=== PATIENT | male | born 1950 | race Caucasian/White ===

== ENCOUNTER 2016-06-10 14:30 | Emergency (ER) | payer MEDICARE, OTHER ==
[~2016-06-10] VITALS: Ht 185.4 cm; Wt 80.3 kg
[2016-06-10 14:34] VITALS: BP 132/89; PULSE 78; RESP 18; TEMP 97.6; O2SAT 100
[2016-06-10] MEDS ORDERED: RANI150T PO (14:48)
[2016-06-10] MEDS ORDERED: LISI-519 PO (14:48)
[2016-06-10] MEDS ORDERED: LEVO75TA3 PO (14:48)
[2016-06-10] MEDS ORDERED: PRAV20TA2 PO (14:48)
--- NOTE | 2016-06-10 14:50 | PD ---
HPI Chief Complaint: Complaint Time Seen by Provider: 14:42 Travel History International Travel<30 days: No Contact w/Intl Traveler<30days: No Traveled to known affect area: No History of Present Illness HPI This patient complains of the abrupt onset of left flank pain with radiation to the testicle. Duration 1 hour. He woke up from a nap with this pain. No urinary complaint. No injury. No fever. Symptoms severity is moderate. No alleviating factors PFSH Past Medical History Genitourinary: Yes (Frequent UTI's) Hypertension: Yes Thyroid Disease: Yes (Hypo-) Tetanus Vaccination: > 5 Years Influenza Vaccination: No Past Surgical History Other Surgery: Yes (Partial thyroidectomy ) Social History Alcohol Use: Yes (Beer/wine 2-3 daily) Tobacco Use: No Substance Use: No Allergies-Medications (Allergen,Severity, Reaction): Coded Allergies: No Known Allergies (Unverified , 06/10/16) Reported Meds & Prescriptions Reported Meds & Active Scripts Active Reported Pravastatin 20 Mg Tab 20 Mg PO DAILY Ranitidine (Ranitidine HCl) 150 Mg Tab 150 Mg PO DAILY Lisinopril 5 Mg Tab 5 Mg PO DAILY Levothyroxine (Levothyroxine Sodium) 75 Mcg Tab 75 Mcg PO DAILY Review of Systems General / Constitutional: No: Fever Eyes: No: Visual changes HENT: No: Headaches Cardiovascular: No: Chest Pain or Discomfort Respiratory: No: Shortness of Breath Gastrointestinal: Positive: Nausea, No: Abdominal Pain Genitourinary: Positive: Flank Pain, No: Dysuria Musculoskeletal: No: Pain Skin: No Rash Neurologic: No: Weakness Psychiatric: No: Depression Endocrine: No: Polydipsia Hematologic/Lymphatic: No: Easy Bruising Physical Exam Narrative GENERAL: Well-nourished, well-developed patient with left flank pain. SKIN: Focused skin assessment reveals no rash and nodules. Skin is Warm and dry. HEAD: Atraumatic. Normocephalic. EYES: Pupils equal and round. No scleral icterus. No injection or drainage. ENT: No nasal bleeding or discharge. Mucous membranes pink and moist. NECK: Trachea midline. No JVD. CARDIOVASCULAR: Regular rate and rhythm. No murmur appreciated. RESPIRATORY: No accessory muscle use. Clear to auscultation. Breath sounds equal bilaterally. GASTROINTESTINAL: Abdomen soft, non-tender, nondistended. Hepatic and splenic margins not palpable. MUSCULOSKELETAL: No obvious deformities. No clubbing. No cyanosis. No edema. NEUROLOGICAL: Awake and alert. No obvious cranial nerve deficits. Motor grossly within normal limits. Normal speech. PSYCHIATRIC: Appropriate mood and affect; insight and judgment normal. : Penis and testicles exam normal Data Data Last Documented VS Vital Signs Date Time Temp Pulse Resp B/P Pulse Ox O2 Delivery O2 Flow Rate FiO2 06/10/16 14:34 97.6 78 18 132/[address] Abd/Pel W/O Iv Contrast (06/10/16 ) Urinalysis - C+S If Indicated (06/10/16 14:47) Ondansetron Inj (Zofran Inj) (06/10/16 15:00) Ketorolac Inj (Toradol Inj) (06/10/16 15:00) Morphine Inj (Morphine Inj) (06/10/16 15:00) Labs Laboratory Tests Test 06/10/16 15:00 Urine Collection Type CLEAN CATCH Urine Color YELLOW Urine Turbidity MOD Urine pH 5.5 Urine Specific [place] 1.017 Urine Protein 30 mg/dL Urine Glucose (UA) NEG mg/dL Urine Ketones 15 mg/dL Urine Occult Blood LARGE Urine Nitrite NEG Urine Bilirubin NEG Urine Leukocyte Esterase SMALL Urine RBC 25-49 /hpf Urine WBC 3-5 /hpf Urine Squamous Epithelial 6-8 /hpf Cells Urine Amorphous Sediment MOD Microscopic Urinalysis Comment CULT NOT INDICATED Urine Collection Time 1500 MDM Medical Decision Making Medical Screen Exam Complete: Yes Emergency Medical Condition: Yes Medical Record Reviewed: Yes Differential Diagnosis Kidney stone, sciatica, pyelonephritis Narrative Course I have reviewed the patient's electronic medical record. He is never been here to the ER before. No prior history of kidney stone I gave him injection of morphine and Zofran and Toradol for symptom relief Urinalysis shows blood without sign of infection CT of abdomen and pelvis shows 6 mm left-sided ureteral stone with some hydronephrosis This would explain his pain. He is improved after the above pain medications He will call urologist on Sunday for follow-up I prescribed him Percocet and Zofran and Flomax Stable for outpatient follow-up Diagnosis Primary Impression: Kidney stone on left side Additional Instructions: The patient was advised to follow up with urologist and return if they worsen. The patient was warned about potential sedation for the medications they will receive on prescription. Med/Other Pt SpecificInfo: Prescription(s) given Scripts Tamsulosin (Flomax)0.4 Mg Cap0.4 Mg PO HS #7 CAP Ref 0 Prov:Butch Serna MD 06/10/16 Ondansetron (Zofran)4 Mg Tab4 Mg PO Q6HR PRN (NAUSEA OR VOMITING) #15 TAB Ref 0 Prov:Butch Serna MD 06/10/16 Oxycodone-Acetaminophen (Percocet)5-325 mg Tab1 Tab PO Q6H PRN (PAIN) #25 TAB Ref 0 Prov:Butch Serna MD 06/10/16 Disposition: 01 DISCHARGE HOME Condition: Stable Butch Serna MD Jun 10, 2016 14:50
[2016-06-10] MEDS ORDERED: ONDANSETRON HCL 4 MG/2 ML VIAL IM ONE (15:00)
[2016-06-10] MEDS ORDERED: KETOROLAC TROMETHAMINE 60 MG/2 ML (IM) VIAL IM ONE (15:00)
[2016-06-10] MEDS ORDERED: MORPHINE SULFATE 4 MG/ML INJ IM ONE (15:00)
[2016-06-10 15:04] LABS: BLOOD, URINE LARGE (NEG); GLUCOSE,URINE NEG (NEG); KETONE, URINE 15 mg/dL (NEG); NITRITE,URINE NEG (NEG); PH, URINE 5.5 (5.0-8.5)
[2016-06-10 15:17] LABS: METHOD OF COLLECTION CLEAN CATCH; URINE COLOR YELLOW (YELLW/STRAW)
[2016-06-10 15:20] LABS: CULTURE IF INDICATED CULT NOT INDICATED
[2016-06-10 15:21] LABS: COMMENT (UR) CULT NOT INDICATED
--- NOTE | 2016-06-10 15:37 | RADHPO ---
EXAM DATE/TIME: 06/10/2016 15:00 [facility] COMPARISON: No previous studies available for comparison. INDICATIONS : Left flank pain today. ORAL CONTRAST: No oral contrast ingested. RADIATION DOSE: 10.64 CTDIvol (mGy) MEDICAL HISTORY : Hypertension. Hypothyroidism. SURGICAL HISTORY : partial thyroidectomy ENCOUNTER: Initial ACUITY: 1 day PAIN SCALE: 8/10 LOCATION: Left flank TECHNIQUE: Volumetric scanning of the abdomen and pelvis was performed. Using automated exposure control and ad justment of the mA and/or kV according to patient size, radiation dose was kept as low as reasonably achievable to obtain optimal diagnostic quality images. FINDINGS: CT Abdomen: The liver, spleen, pancreas, right kidney, adrenals are unremarkable. There is no evidenc e for any appreciable pathological adenopathy, free fluid, or bowel obstruction. There is an approxi mate 6 mm stone in the left proximal ureter past the UPJ with moderate hydronephrosis in the left kid jesus. CT pelvis: There is no evidence for mass, abscess formation, or any significant adenopathy within the pelvis. The prostate gland is inhomogeneous and measures 3.7 x 5.2 cm in AP and transverse diameters and nonspecific. There are scattered diverticuli mainly in the sigmoid colon without definite signs of diverticulitis. CONCLUSION: Left proximal ureteral stone with moderate hydronephrosis. Kendal Morgan MD on June 10, 2016 at 15:33 Board Certified Radiologist. This report was verified electronically.
[2016-06-10] MEDS ORDERED: ZOFR4TAB PO (15:48)
[2016-06-10] MEDS ORDERED: TAMS5CAP PO (15:48)
[2016-06-10] MEDS ORDERED: PERC5TAB12 PO (15:48)
[2016-06-10 16:10] VITALS: BP 119/79; PULSE 68; RESP 14; O2SAT 100
== END 2016-06-10 16:10 | disposition home or self-care (01) ==
LOC: PHED 14:30
DX: N13.2 Hydronephrosis with renal and ureteral calculous obstruction (principal)
CPT/HCPCS: 74176; 81001; 96372; 99284; J1885; J2270; J2405

== ENCOUNTER 2016-07-15 13:29 | Emergency (ER) | payer MEDICARE, OTHER ==
[~2016-07-15] VITALS: Ht 182.9 cm; Wt 80.0 kg
[~2016-07-15 13:29] MED LIST: LEVO75TA3 PO; LISI-519 PO; PERC5TAB12 PO; PRAV20TA2 PO; RANI150T PO; TAMS5CAP PO; ZOFR4TAB PO
[2016-07-15] MEDS ORDERED: ADENOSINE IV SOLN 3 MG/ML 2 ML VIAL ONE (13:38)
[2016-07-15 13:45] VITALS: BP 139/102; PULSE 170; RESP 16; TEMP 98.7; O2SAT 97
[2016-07-15 13:48] VITALS: BP 163/96; PULSE 83; RESP 16; O2SAT 98
--- NOTE | 2016-07-15 13:50 | PD ---
HPI Chief Complaint: Chest Pain Time Seen by Provider: 13:44 Travel History International Travel<30 days: No Contact w/Intl Traveler<30days: No History of Present Illness HPI Patient presents with complaints of rapid heart rate for approximately one hour. Denies any chest pain shortness of breath urinary or bowel symptoms. Denies any new medications. Denies any supplements or drug use. Denies excessive caffeine intake. Normally takes lisinopril for hypertension. Denies any diaphoresis or shortness of breath. Denies tobacco use. Reports a similar episode approximately month ago that lasted for 10 minutes. PFSH Past Medical History Genitourinary: Yes (Frequent UTI's) Hypertension: Yes Thyroid Disease: Yes (Hypo-) Past Surgical History Other Surgery: Yes (Partial thyroidectomy ) Social History Alcohol Use: Yes (Beer/wine 2-3 daily) Tobacco Use: No Substance Use: No Allergies-Medications (Allergen,Severity, Reaction): Coded Allergies: No Known Allergies (Unverified , 06/10/16) Reported Meds & Prescriptions Reported Meds & Active Scripts Active Flomax (Tamsulosin HCl) 0.4 Mg Cap 0.4 Mg PO HS Zofran (Ondansetron HCl) 4 Mg Tab 4 Mg PO Q6HR PRN Percocet (Oxycodone-Acetaminophen) 5-325 mg Tab 1 Tab PO Q6H PRN Reported Pravastatin 20 Mg Tab 20 Mg PO DAILY Ranitidine (Ranitidine HCl) 150 Mg Tab 150 Mg PO DAILY Lisinopril 5 Mg Tab 5 Mg PO DAILY Levothyroxine (Levothyroxine Sodium) 75 Mcg Tab 75 Mcg PO DAILY Review of Systems General / Constitutional: No: Fever Eyes: No: Visual changes HENT: No: Headaches Cardiovascular: Positive: Palpitations, Tachycardia, No: Chest Pain or Discomfort Respiratory: No: Shortness of Breath Gastrointestinal: No: Abdominal Pain Genitourinary: No: Dysuria Musculoskeletal: No: Pain Skin: No Rash Neurologic: No: Weakness Psychiatric: No: Depression Endocrine: No: Polydipsia Hematologic/Lymphatic: No: Easy Bruising Physical Exam Narrative GENERAL: Well-nourished, well-developed patient. SKIN: Focused skin assessment warm/dry. HEAD: Normocephalic. EYES: No scleral icterus. No injection or drainage. NECK: Supple, trachea midline. No JVD or lymphadenopathy. CARDIOVASCULAR: Regular rate and rhythm without murmurs, gallops, or rubs. RESPIRATORY: Breath sounds equal bilaterally. No accessory muscle use. GASTROINTESTINAL: Abdomen soft, non-tender, nondistended. MUSCULOSKELETAL: No cyanosis, or edema. BACK: Nontender without obvious deformity. No CVA tenderness. Data Data Last Documented VS Vital Signs Date Time Temp Pulse Resp B/P Pulse Ox O2 Delivery O2 Flow Rate FiO2 07/15/16 14:00 98 07/15/16 14:00 83 16 143/88 133/91 07/15/16 13:45 98.7 Orders Adenosine Inj (Adenocard Inj) (07/15/16 13:38) Electrocardiogram (07/15/16 13:50) Ckmb (Isoenzyme) Profile (07/15/16 13:50) Complete Blood Count With Diff (07/15/16 13:50) Comprehensive Metabolic Panel (07/15/16 13:50) Magnesium (Mg) (07/15/16 13:50) Prothrombin Time / Inr (Pt) (07/15/16 13:50) Act Partial Throm Time (Ptt) (07/15/16 13:50) Troponin I (07/15/16 13:50) Chest, Single Ap (07/15/16 13:50) Ecg Monitoring (07/15/16 13:50) Bilateral Bp Monitoring (07/15/16 13:50) Iv Access Insert/Monitor (07/15/16 13:50) Oximetry (07/15/16 13:50) Oxygen Administration (07/15/16 13:50) Aspirin (Aspirin) (07/15/16 14:00) Sodium Chloride 0.9% Flush (Ns Flush) (07/15/16 14:00) Thyroid Stimulating Hormone (07/15/16 13:53) Electrocardiogram (07/15/16 ) CKMB (07/15/16 13:40) CKMB% (07/15/16 13:40) Labs Laboratory Tests Test 07/15/16 13:40 White Blood Count 14.4 TH/MM3 Red Blood Count 5.45 MIL/MM3 Hemoglobin 16.3 GM/DL Hematocrit 49.8 % Mean Corpuscular Volume 91.3 FL Mean Corpuscular Hemoglobin 29.8 PG Mean Corpuscular Hemoglobin 32.7 % Concent Red Cell Distribution Width 12.8 % Platelet Count 204 TH/MM3 Mean Platelet Volume 9.1 FL Neutrophils (%) (Auto) 78.9 % Lymphocytes (%) (Auto) 11.0 % Monocytes (%) (Auto) 9.6 % Eosinophils (%) (Auto) 0.2 % Basophils (%) (Auto) 0.3 % Neutrophils # (Auto) 11.4 TH/MM3 Lymphocytes # (Auto) 1.6 TH/MM3 Monocytes # (Auto) 1.4 TH/MM3 Eosinophils # (Auto) 0.0 TH/MM3 Basophils # (Auto) 0.0 TH/MM3 CBC Comment DIFF FINAL Differential Comment Prothrombin Time 10.9 SEC Prothromb Time International 1.0 RATIO Ratio Activated Partial 25.4 SEC Thromboplast Time Sodium Level 139 MEQ/L Potassium Level 3.8 MEQ/L Chloride Level 105 MEQ/L Carbon Dioxide Level 23.6 MEQ/L Anion Gap 10 MEQ/L Blood Urea Nitrogen 17 MG/DL Creatinine 1.30 MG/DL Estimat Glomerular Filtration 55 ML/MIN Rate Random Glucose 119 MG/DL Calcium Level 9.0 MG/DL Magnesium Level 2.1 MG/DL Total Bilirubin 1.0 MG/DL Aspartate Amino Transf 21 U/L (AST/SGOT) Alanine Aminotransferase 31 U/L (ALT/SGPT) Alkaline Phosphatase 58 U/L Total Creatine Kinase 149 U/L Creatine Kinase MB 1.6 NG/ML Troponin I LESS THAN 0.02 NG/ML Total Protein 7.5 GM/DL Albumin 4.2 GM/DL Thyroid Stimulating Hormone 1.470 uIU/ML [address] [place] [address] Medical Decision Making Medical Screen Exam Complete: Yes Emergency Medical Condition: Yes Differential Diagnosis SVT, atrial fibrillation, acute coronary syndrome Narrative Course Assessment and plan discussed with patient at bedside. Initial EKG SVT rate of 173. No response to vagal maneuvers. Patient received 6 mg of adenison with improvement of rate 90. Last 72 hours Impressions Chest X-Ray 07/15/16 1350 Signed Impressions: Service Date/Time: Friday, July 15, 2016 14:13 - CONCLUSION: No acute cardiopulmonary disease identified. Julian Sales MD Diagnosis Primary Impression: SVT (supraventricular tachycardia) Patient Instructions: General Instructions Additional Instructions: Encourage rest and fluids, encouraged to follow-up with PCP for further evaluation and possible long-term Holter monitor. Encouraged to return to the emergency room with any new onset of symptoms. Med/Other Pt SpecificInfo: No Meds Exist/No RX given Disposition: 01 DISCHARGE HOME Condition: Good Dilan Bowen MD Jul 15, 2016 13:50
[2016-07-15 14:00] VITALS: BP_SYST 133; BP_SYST 167; BP_DIAS 106; BP_DIAS 91; PULSE 83; RESP 16; O2SAT 98
[2016-07-15] MEDS ORDERED: ASPIRIN 325 MG TAB PO ONE (14:00)
[2016-07-15] MEDS ORDERED: SODIUM CHLORIDE 0.9% FLUSH 10 ML FLUSH IVF PRN (14:00)
[2016-07-15 14:02] LABS: AUTOMATED NEUTROPHIL # 11.4 TH/MM3 (1.8-7.7); BASOPHIL % 0.3 % (0.0-2.0); EOSINOPHIL % 0.2 % (0.0-4.0); HEMATOCRIT 49.8 % (39.0-51.0); HEMO FLAGS DIFF FINAL; LYMPHOCYTE # 1.6 TH/MM3 (1.0-4.8); MEAN CELL VOLUME 91.3 FL (80.0-100.0); MEAN CORPUSCULAR HEMOGLOBIN 29.8 PG (27.0-34.0); MEAN CORPUSCULAR HGB CONC 32.7 % (32.0-36.0); MONO % 9.6 % (0.0-8.0); NEUT % 78.9 % (16.0-70.0); PLATELET COUNT 204 TH/MM3 (150-450); RED BLOOD COUNT 5.45 MIL/MM3 (4.50-5.90); RED CELL DISTRIBUTION WIDTH 12.8 % (11.6-17.2); WHITE BLOOD COUNT 14.4 TH/MM3 (4.0-11.0)
[2016-07-15 14:14] LABS: CHLORIDE 105 MEQ/L (98-107); POTASSIUM 3.8 MEQ/L (3.5-5.1); SODIUM (NA) 139 MEQ/L (136-145)
[2016-07-15 14:17] LABS: ANION GAP 10 MEQ/L (5-15); BICARBONATE 23.6 MEQ/L (21.0-32.0)
[2016-07-15 14:18] LABS: BLOOD UREA NITROGEN 17 MG/DL (7-18); MAGNESIUM 2.1 MG/DL (1.5-2.5)
[2016-07-15 14:19] LABS: APTT (PATIENT) 25.4 SEC (24.3-30.1); PROTHROMBIN TIME - PATIENT 10.9 SEC (9.8-11.6)
[2016-07-15 14:20] LABS: ALT (GPT) 31 U/L (12-78)
[2016-07-15 14:21] LABS: AST (GOT) 21 U/L (15-37); GLOMERULAR FILTRATION RATE 55 ML/MIN (>89)
[2016-07-15 14:23] LABS: ALKALINE PHOSPHATASE 58 U/L (45-117); CREATINE KINASE 149 U/L (39-308)
[2016-07-15 14:36] LABS: CKMB 1.6 NG/ML (0.5-3.6)
--- NOTE | 2016-07-15 15:31 | RADHPO ---
EXAM DATE/TIME: 07/15/2016 14:13 [facility] COMPARISON: No previous studies available for comparison. INDICATIONS : Rapid and irregular heart rate, elevated BP MEDICAL HISTORY : None. SURGICAL HISTORY : None. ENCOUNTER: Initial ACUITY: 1 day PAIN SCORE: 0/10 LOCATION: Bilateral chest FINDINGS: Single AP view of the chest. The lungs are clear. Cardiomediastinal silhouette within normal limits. No evidence of pleural effusion or pneumothorax. CONCLUSION: No acute cardiopulmonary disease identified. Julian Sales MD on July 15, 2016 at 15:28 Board Certified Radiologist. This report was verified electronically.
[2016-07-15 16:13] VITALS: BP 130/84
--- NOTE | 2016-07-16 14:37 | EKG ---
Date Performed: 07/15/2016 Time Performed: 13:30:04 PTAGE: 66 years EKG: Probable paroxysmal supraventricular tachycardia. Diffuse nonspecific ST-T change Abnormal ECG NO PREVIOUS TRACING DOCTOR: Johnnie Shepherd Interpretating Date/Time 07/16/2016 14:36:18
--- NOTE | 2016-07-16 14:40 | EKG ---
Date Performed: 07/15/2016 Time Performed: 14:23:26 PTAGE: 66 years EKG: Sinus rhythm . Compared to previous tracing, the paroxysmal SVT has converted to sinus rhythm and the ST-T changes have resolved Normal ECG PREVIOUS TRACING : 07/15/2016 13.30 DOCTOR: Johnnie Shepherd Interpretating Date/Time 07/16/2016 14:37:49
== END 2016-07-15 16:15 | disposition home or self-care (01) ==
LOC: PHED 13:29
DX: I47.1 Supraventricular tachycardia (principal); I10 Essential (primary) hypertension; E03.9 Hypothyroidism, unspecified
CPT/HCPCS: 71010; 80053; 82550; 82552; 83735; 84443; 84484; 85025; 85610; 85730; 93005; 96374; 99285; J0153

== ENCOUNTER → 2016-07-25 | Day surgery (SDC) | payer MEDICARE, OTHER ==
[~2016-07-25] MED LIST changes: +GENTAMICIN SULFATE 80 MG/2 ML VIAL ONE; +IOHEXOL 180 MG/ML 20 ML VIAL (for RAD DIAG) ONE; +LACTATED RINGER'S 1000 ML INJ 1,000 ML ONE; +MEPERIDINE HCL 25 MG/ML VIAL ONE; +MIDAZOLAM HCL 2 MG/2 ML VIAL ONE; +ONDANSETRON HCL 4 MG/2 ML VIAL IV PUSH ONE; +PROPOFOL 200 MG/20 ML AMP IV ONE; +SODIUM CHLORIDE 0.9% INJ 10 ML ONE; +SODIUM CHLORIDE 0.9% SOLN 100 ML BAG IV ONE
--- NOTE | 2016-07-25 12:52 | TN ---
cc: ANAI COY M.D. DATE OF SURGERY: 07/25/2016 POSTOPERATIVE DIAGNOSIS Left ureteral calculus (ICD-10 code N20.1). POSTOPERATIVE DIAGNOSIS Left ureterovesical junction calculus (UVJ), (ICD-10 code N20.1). PROCEDURE Cystourethroscopy with left ureteroscopic holmium laser lithotripsy and stone basket manipulation (CPT code 76897). INDICATION Mr. Betancur is a 66-year-old gentleman who has failed a trial of medical expulsive therapy and presents now for definitive treatment. FINDINGS Findings were normal urethra with evidence of a trilobar hyperplasia and a very elevated and somewhat obstructing bladder neck with some calcifications noted within the areas of the prostatic urethra additionally. The ureteral orifice on the right is normal size, shape and position, effluxing clear urine. The left is somewhat difficult to visualize due to overlying edema and some erythema consistent with a distal stone. The remainder of the bladder is pretty unremarkable. There is no diverticula, cellules, calcifications, trabeculation or diverticula. The ureteroscopy shows a left ureterovesical junction calculus approximately 6 mm and a dilated ureter proximal to this. DETAILS OF PROCEDURE The procedure as well as the risks and benefits were explained to the patient. Informed consent was obtained. The patient was taken to the major operating theatre where he was placed in supine position. The patient was identified as well as the operative site. A universal timeout was performed in standard fashion. At this time general anesthetic and prophylactic intravenous antibiotics consisting of gentamicin 80 mg was administered. After adequate anesthetic he is placed in the low dorsal lithotomy position, prepped and draped in usual sterile fashion. Due to his prominent median lobe, the very distal ureteral orifice which was inflated, there was some difficulty locating the ureteral orifice but with the help of a 70-degree lens it could be located. Then using an open-ended 6-Divehi catheter and a 0.035 inch hybrid guidewire and with some manipulation we were able to place the guidewire past the stone and under fluoroscopic guidance up the ureter into the renal pelvis. A second guidewire was placed without difficulty. The cystoscope was then removed and a semirigid mini ureteroscope was then placed over a wire and riding the wires we were able to enter easily into the distal ureter and essentially the ureterovesical junction where the stone was encountered and identified. Photo documentation was obtained. Then using a 365 micron holmium laser fiber at a setting of 0.8 magallanes and 8 Hz holmium laser lithotripsy and pulverization of the stone was performed until the stone was in 4-5 separate pieces. Then using a Zero Tip nitinol basket the individual fragments were basketed and removed and sent for final crystallographic analysis. At this time the scope was placed as far as possible up the ureter. There was no evidence of trauma. Attention in the distal ureter where the procedure was performed showed no evidence of any trauma and the decision was made not to leave a stent. The ureteroscope was removed. The cystoscope was placed back into the bladder. Attention was directed to the orifice where there was minimal hematuric urine effluxing readily with no significant trauma. The decision again was confirmed not to leave any stent. The bladder was then decompressed and removal of the stone fragments and the cystoscope removed. The patient tolerated the procedure well, emerged from anesthetic without difficulty and was transferred to the recovery room in stable condition to be discharged home when criteria is met. There were no obvious complications. MD BRUNA Enriquez/REFUGIO /12:19 PM /12:32 PM
== END | disposition home or self-care (01) ==
LOC: ESDC 09:05
PROVIDERS: ATTEND Urology
DX: N20.1 Calculus of ureter (principal)
CPT/HCPCS: 00918; 52353; 76000; C1769; J1580; J2175; J2250; J2405; J3010; J7120; Q9965